=== PATIENT | male | born 1970 | race Caucasian/White ===

== ENCOUNTER → 2018-08-17 07:30 | Outpatient (CLI) | payer MEDICARE, MEDICAID ==
[2013-09-20 12:30] VITALS: BMI 45.7
[~2018-08-17 07:30] MED LIST: ASPIRIN EC81 MG PO; BOUDREAUXS113 GM TP; CHANTIX 1 MG TAB1 MG PO; COLACE100 MG PO; COUMADIN5 MG PO; LANTUS INSULIN10 ML; LANTUS SOL100 UNIT/1 SQ; LOFIBRA134 MG PO; NORCO 10/325 TA1 TA1 PO; PRINIVIL20 MG PO
== END | disposition home or self-care (01) ==
LOC: D.MRI 07:30
DX: S91.302A Unspecified open wound, left foot, initial encounter (principal); X58.XXXA Exposure to other specified factors, initial encounter

== ENCOUNTER → 2018-08-29 16:41 | Outpatient (CLI) | payer MEDICARE, MEDICAID ==
[2013-09-20 12:30] VITALS: BMI 45.7
[2018-08-29 17:15] LABS: CALC OSMOLALITY 289 mosm/kg (275-300); CALCIUM 8.5 mg/dL (8.5-10.1); CARBON DIOXIDE 31.5 mmol/L (21.0-32.0); CHLORIDE - SERUM 102 mmol/L (98-107); CREATININE - SERUM 0.8 mg/dL (0.6-1.3); GLUCOSE 209 mg/dL (74-106); POTASSIUM - SERUM 3.8 mmol/L (3.5-5.1); SODIUM 142 mmol/L (136-145); UREA NITROGEN 15 mg/dL (7-18); VANCOMYCIN - TROUGH 14.8 ug/mL (10.0-20.0); eGFR NON AFRICAN AMERICAN > 90 mL/min (90-120)
== END | disposition home or self-care (01) ==
LOC: D.LABREF 16:41
PROVIDERS: Internal Medicine
DX: S91.302A Unspecified open wound, left foot, initial encounter (principal)

== ENCOUNTER → 2019-06-06 16:43 | Outpatient (CLI) | payer MEDICARE, MEDICAID ==
[2013-09-20 12:30] VITALS: BMI 45.7
== END | disposition home or self-care (01) ==
LOC: D.LABREF 16:43
PROVIDERS: ATTEND Podiatrist Foot & Ankle Surgery
DX: L03.116 Cellulitis of left lower limb (principal)

== ENCOUNTER → 2019-07-10 17:39 | Outpatient (CLI) | payer MEDICARE, MEDICAID ==
[2013-09-20 12:30] VITALS: BMI 45.7
== END | disposition home or self-care (01) ==
LOC: D.LABREF 17:39
PROVIDERS: ATTEND Podiatrist Foot & Ankle Surgery
DX: L97.522 Non-pressure chronic ulcer of other part of left foot with fat layer exposed (principal)